=== PATIENT | female | born 1985 | race American Indian/Alaskan Native ===

== ENCOUNTER → 2025-04-07 | Outpatient (CLI) | payer MEDICAID, SELFPAY ==
--- NOTE | 2025-04-07 14:29 | XR_ITS ---
Examination: Bilateral hips, AP pelvis, 5 views Technique: AP, lateral views both hips, AP pelvis, 5 views Exam date and time: April 07, 2025, 1455 hours INDICATIONS: Left hip pain beginning 3 months ago. FINDINGS: No hip fracture or dislocation Bones of the pelvis intact Minimal bilateral hip osteoarthritis IMPRESSION: Minimal bilateral hip osteoarthritis
== END | disposition home or self-care (01) ==
PROVIDERS: PCP Physician Assistant; Referring Provider Physician Assistant; Visit Provider Physician Assistant
DX: M16.0 Bilateral primary osteoarthritis of hip (principal)
CPT/HCPCS: 73523